=== PATIENT | female | born 1980 | race Caucasian/White ===

== ENCOUNTER 2017-10-16 12:46 | Emergency (ER) | payer OTHER ==
[~2017-10-16] VITALS: Ht 162.6 cm; Wt 82.2 kg
[~2017-10-16 12:46] MED LIST: LVXUNK; NOVOLOG INSULIN PUMP; OGESTREL
[2017-10-16 12:57] VITALS: TEMP 36.6; Ht 162.6 cm; Wt 82.2 kg
[2017-10-16] MEDS ORDERED: SODIUM CHLORIDE 0.9% 1000ML 1,000 ML IV SCH (13:16)
--- NOTE | 2017-10-16 13:31 | DIAGNOSTIC IMAGING REPORT ---
CT HEAD WITHOUT CONTRAST (CT) CLINICAL HISTORY: Stroke FACIAL NUMBNESS COMPARISON STUDY: No previous studies for comparison. TECHNIQUE: Axial CT of the brain is performed from the vertex to the skull base. IV contrast was not administered for this examination. A dose lowering technique was utilized adhering to the principles of ALARA. CT DOSE: 601.98 mGy.cm FINDINGS: No intra or extra-axial mass lesions are visualized. There is no CT evidence of acute cortical infarction. There is no evidence of midline shift. There is no acute hemorrhage. No calvarial fractures are visualized. There is no evidence of pathologic ventricular dilatation. There is no evidence of acute sinusitis IMPRESSION: No acute intracranial findings Electronically signed by: Clement Mccullough M.D. 10/16/2017 1:29 PM Dictated Date/Time: 10/16/2017 1:28 PM
[2017-10-16 13:37] VITALS: O2SAT 99
[2017-10-16 14:39] LABS: BASO % 0.2 %; BASO ABS # 0.02 K/uL (0-0.2); EOS % 0.2 %; EOS ABS # 0.02 K/uL (0-0.5); HEMATOCRIT 47.7 % (37-47); IG# 0.03 K/uL (0.00-0.02); LYMPH % 24.3 %; LYMPH ABS # 2.45 K/uL (1.2-3.4); MEAN CELL VOLUME 89.2 fL (80-100); MEAN CORPUSCULAR HEMOGLOBIN 31.8 pg (25-34); MEAN CORPUSCULAR HGB CONC 35.6 g/dl (32-36); MEAN PLATELET VOLUME 9.8 fL (7.4-10.4); MONO % 6.9 %; NEUT % 68.1 %; NEUT ABS # 6.88 K/uL (1.4-6.5); PLATELET COUNT 288 K/uL (130-400); RED CELL DISTRIBUTION WIDTH CV 12.9 % (11.5-14.5); RED CELL DISTRIBUTION WIDTH SD 41.9 fL (36.4-46.3)
[2017-10-16 14:49] LABS: PTT PATIENT 25.9 SECONDS (21.0-31.0)
[2017-10-16] MEDS ORDERED: INSPMPHMLG (14:53)
[2017-10-16] MEDS ORDERED: PROMETHAZINE HCL INJ 12.5 MG in SODIUM CHLORIDE 0.9% 50ML 50 ML IV STA (14:54)
[2017-10-16] MEDS ORDERED: SODIUM CHLORIDE 0.9% 1000ML 500 ML IV STA (14:54)
[2017-10-16] MEDS ORDERED: KETOROLAC TROMETHAMINE 30 MG/ML VIAL IV STA (14:54)
[2017-10-16] MEDS ORDERED: ASPI81TA28 PO (14:56)
[2017-10-16] MEDS ORDERED: ALPR0.25 PO (14:56)
[2017-10-16 14:57] LABS: BLOOD UREA NITROGEN 10 mg/dl (7-18); CALCIUM 9.3 mg/dl (8.5-10.1); CARBON DIOXIDE 28 mmol/L (21-32); CREATININE 0.87 mg/dl (0.60-1.20); GLUCOSE 260 mg/dl (70-99); POTASSIUM 3.8 mmol/L (3.5-5.1); SODIUM 136 mmol/L (136-145)
[2017-10-16 15:02] LABS: CKMB 1.9 ng/ml (0.5-3.6)
[2017-10-16] MEDS ORDERED: MoRPHine SULFATE 4 MG/ML 1 ML CARP\\VIAL IV STA (15:48)
--- NOTE | 2017-10-16 16:21 | EMERGENCY ROOM VISIT NOTE ---
History Report prepared by Genet: Iram Marie Under the Supervision of: Dr. Catracho Shin M.D. First contact with patient: 13:04 Chief Complaint: NEURO SYMPTOMS Stated Complaint: POSSIBLE STROKE History of Present Illness The patient is a 37 year old female who presents to the Emergency Room with complaints of worsening stroke like symptoms that began suddenly 2 hours ago. The patient reports numbness on the left side of her face, and numbness and weakness in her left arm. She states she has a headache. She denies abdominal pain, vomiting, fevers, and head strike. 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 She has a history of Type 1 diabetes and Pots syndrome. She denies any chest pain or shortness of breath or fever or chills. She is not on any blood thinners Source of History: patient, family Onset: 2 hours ago Position: head, leg (left) Timing: worsening Associated Symptoms: + headache, + weakness (left arm), + numbness (left side of face and left arm), No fevers, No vomiting, No abdominal pain Note: Patient denies head strike. Review of Systems See HPI for pertinent positives & negatives. A total of 10 systems reviewed and were otherwise negative. Past Medical & Surgical Medical Problems: (1) POTS (postural orthostatic tachycardia syndrome) (2) Type 1 diabetes Surgical Problems: (1) H/O: hysterectomy Old medical records were attempted to be reviewed but there are no old records at this hospital. Nurse's notes were reviewed and I agree with. Social History Smoking Status: Current Every Day Smoker Alcohol Use: occasionally Marital Status: in relationship Housing Status: lives with family Occupation Status: employed Current/Historical Medications Scheduled Aspirin (Aspirin Ec), 81 MG PO DAILY Insulin Human Lispro (Insulin Humalog Pump ), 1 EA N/A UD Scheduled PRN Alprazolam (Xanax), 0.25 MG PO UD PRN for poltz syndrome Allergies Coded Allergies: Codeine (Verified Adverse Reaction, Intermediate, HEART RACES, 06/25/10) Physical Exam Vital Signs Date Time Temp Pulse Resp B/P (MAP) Pulse Ox O2 Delivery O2 Flow Rate FiO2 10/16/17 16:35 87 20 146/87 96 10/16/17 16:03 84 20 108/68 96 Room Air 10/16/17 14:31 90 18 120/78 98 Room Air 10/16/17 14:03 93 10/16/17 13:37 99 Room Air 10/16/17 12:57 36.6 90 18 118/78 97 Room Air Physical Exam General: Non-ill appearing young female in no acute distress. Speaking and swallowing without difficulty. HEENT: Normal cephalic atraumatic. Pupils are equal round and reactive to light. Extraocular movements are intact. Oropharynx is pink with moist mucous membranes. No swelling of the mouth lips or tongue. Neck: Supple with a midline trachea. No meningeal signs or stiffness, no JVD or bruits. No Stridor. Chest: Clear to auscultation bilaterally. No wheezes or rhonchi. No increased work of breathing. Heart: regular rate and rhythm. Abdomen: Soft nontender, nondistended without rebound guarding or rigidity. Extremities: No cyanosis clubbing or edema. No calf tenderness or assymetry Spine/Back. Non tender to palpation. No CVA tenderness Skin: Good turgor without rashes. Neurologic exam: Cranial nerves two through 12 are intact. Subjective decreased sensation in left cheek and arm. She can feel light touch. Medical Decision & Procedures ER Provider Diagnostic Interpretation: Radiology results as stated below per my review and radiologist interpretation: CT HEAD WITHOUT CONTRAST (CT) CLINICAL HISTORY: Stroke FACIAL NUMBNESS COMPARISON STUDY: No previous studies for comparison. TECHNIQUE: Axial CT of the brain is performed from the vertex to the skull base. IV contrast was not administered for this examination. A dose lowering technique was utilized adhering to the principles of ALARA. CT DOSE: 601.98 mGy.cm FINDINGS: No intra or extra-axial mass lesions are visualized. There is no CT evidence of acute cortical infarction. There is no evidence of midline shift. There is no acute hemorrhage. No calvarial fractures are visualized. There is no evidence of pathologic ventricular dilatation. There is no evidence of acute sinusitis IMPRESSION: No acute intracranial findings Electronically signed by: Clement Mccullough M.D. 10/16/2017 1:29 PM Dictated Date/Time: 10/16/2017 1:28 PM Laboratory Results 10/16/17 14:21 Red Blood Count 5.35, Mean Corpuscular Volume 89.2, Mean Corpuscular Hemoglobin 31.8, Mean Corpuscular Hemoglobin Concent 35.6, Mean Platelet Volume 9.8, Neutrophils (%) (Auto) 68.1, Lymphocytes (%) (Auto) 24.3, Monocytes (%) (Auto) 6.9, Eosinophils (%) (Auto) 0.2, Basophils (%) (Auto) 0.2, Neutrophils # (Auto) 6.88, Lymphocytes # (Auto) 2.45, Monocytes # (Auto) 0.70, Eosinophils # (Auto) 0.02, Basophils # (Auto) 0.02 10/16/17 14:21 Test 10/16/17 13:20 10/16/17 14:21 Bedside Prothrombin Time INR 1.0 (0.9-1.1) White Blood Count 10.10 K/uL (4.8-10.8) Red Blood Count 5.35 M/uL (4.2-5.4) Hemoglobin 17.0 g/dL (12.0-16.0) Hematocrit 47.7 % (37-47) Mean Corpuscular Volume 89.2 fL (80-100) Mean Corpuscular Hemoglobin 31.8 pg (25-34) Mean Corpuscular Hemoglobin Concent 35.6 g/dl (32-36) Platelet Count 288 K/uL (130-400) Mean Platelet Volume 9.8 fL (7.4-10.4) Neutrophils (%) (Auto) 68.1 % Lymphocytes (%) (Auto) 24.3 % Monocytes (%) (Auto) 6.9 % Eosinophils (%) (Auto) 0.2 % Basophils (%) (Auto) 0.2 % Neutrophils # (Auto) 6.88 K/uL (1.4-6.5) Lymphocytes # (Auto) 2.45 K/uL (1.2-3.4) Monocytes # (Auto) 0.70 K/uL (0.11-0.59) Eosinophils # (Auto) 0.02 K/uL (0-0.5) Basophils # (Auto) 0.02 K/uL (0-0.2) RDW Standard Deviation 41.9 fL (36.4-46.3) RDW Coefficient of Variation 12.9 % (11.5-14.5) Immature Granulocyte % (Auto) 0.3 % Immature Granulocyte # (Auto) 0.03 K/uL (0.00-0.02) Prothrombin Time 10.0 SECONDS (9.0-12.0) Prothromb Time International Ratio 1.0 (0.9-1.1) Activated Partial Thromboplast Time 25.9 SECONDS (21.0-31.0) Partial Thromboplastin Ratio 1.0 Anion Gap 6.0 mmol/L (3-11) Est Creatinine Clear Calc Drug Dose 91.0 ml/min Estimated GFR () 97.9 Estimated GFR (Non- 84.5 BUN/Creatinine Ratio 11.2 (10-20) Calcium Level 9.3 mg/dl (8.5-10.1) Magnesium Level 1.9 mg/dl (1.8-2.4) Total Creatine Kinase 164 U/L (26-192) Creatine Kinase MB 1.9 ng/ml (0.5-3.6) Creatine Kinase MB Ratio 1.2 (0-3.0) Troponin I < 0.015 ng/ml (0-0.045) Laboratory studies as stated above per my review. Medications Administered Medications (Trade) Dose Ordered Sig/Willy Route Start Time Stop Time Status Last Admin Dose Admin Sodium Chloride 1,000 ml @ 50 mls/hr Q20H IV 10/16/17 13:16 11/15/17 13:15 10/16/17 13:16 50 MLS/HR Sodium Chloride 500 ml @ 999 mls/hr Q31M STAT IV 10/16/17 14:54 10/16/17 15:24 DC 10/16/17 14:54 999 MLS/HR Ketorolac Tromethamine (Toradol Inj) 30 mg NOW STAT IV 10/16/17 14:54 10/16/17 14:56 DC 10/16/17 15:16 30 MG Promethazine HCl 12.5 mg/Sodium Chloride 50.5 ml @ 204 mls/hr NOW STAT IV 10/16/17 14:54 10/16/17 15:08 DC 10/16/17 15:26 204 MLS/HR Morphine Sulfate (MoRPHine SULFATE INJ) 4 mg NOW STAT IV 10/16/17 15:48 10/16/17 15:53 DC 10/16/17 16:00 4 MG Aspirin (Aspirin Chew) 324 mg NOW STAT PO 10/16/17 16:28 10/16/17 16:29 DC 10/16/17 16:39 324 MG ECG Per My Interpretation Indication: other (stroke like symptoms) Rate (beats per minute): 86 Rhythm: normal sinus Findings: no acute ischemic change, no ectopy Comparison ECG Date: no prior available ED Course 1304: Past medical records reviewed. The patient was evaluated in room B3B, and a complete history and physical examination were performed. 1316: Sodium Chloride 1000 ml @ 50 mls/hr IV. 1332. I checked on the patient and she is doing well. 1406: I spoke with Dr. Mckinnon. Discussed the patient's case. The patient will be evaluated for further management. 1450: I spoke with Dr. Mckinnon and he doesn't believe that the patient has had a stroke. 1454: Promethazine HCl 12.5 mg/Sodium Chloride, 50.5 ml @ 204 mls/hr; Toradol Inj, 30 mg, IV; Sodium Chloride 500 ml @ 999 mls/hr IV. 1456: I spoke with the patient and suggested we admit her. She declined. I told her that I will recheck her and see if her numbness subsides. 1546: I checked on the patient. She states she is feeling better. She reports that she still feels numbness in her face and has a headache. She will have a car driver pick her up. 1548: Morphine Sulfate Inj, 4 mg, IV. 1621: I checked on the patient and she is doing well. The headache and tingling have improved. I offered admission and she declined. I will increase her Aspirin. 1628: Aspirin Chew, 324 mg, PO. 1630: Upon reevaluation, the patient is doing well. I discussed the results and treatment plan with her. She verbalized agreement of the treatment plan. The patient was discharged home. Medical Decision Differential diagnoses includes CVA, TIA, migraine, hypoglycemia, electrolyte and metabolic abnormality. This patient comes in as described above. She was well until about 2 hours ago and had some tingling in her left face and arm. She looks well on exam. She has no neurologic deficits with the exception of subjective decrease in sensation of these areas however she has intact light touch. EKG does not suggest acute coronary syndrome or arrhythmia. Blood sugars only mildly elevated in the 200s and she has no evidence of DKA or acute diabetic emergency. She has no acute electrolyte or metabolic abnormalities. I did call a stroke alert, Dr. Hernandez did look to the patient and he does not feel that is likely a stroke. She has had this before and it may be more of a complicated migraine. She does have a headache. She was hydrated with normal saline IV as well as given IV Phenergan and IV Toradol and this actually helped her headache as well as her tingling. she required additional morphine 4 mg IV and was doing much better with this. The headache was significantly resolved and the tingling had gotten a lot better as well. I talked to the patient at length and recommended that we observe her in the hospital and do an MRI and further neurologic workup. I told her that this could be a new stroke or TIA or another central neurologic process and recommended that we keep her in the hospital for further evaluation, particularly given the fact that she is diabetic and has other cardiovascular risk factors. I discussed this with her several times which she adamantly declines and wants to get home. she has a friend here who will be driving. I encouraged to have close follow-up with her regular doctor and return to the ER if: increasing pain or worsening of numbness or weakness, any new problems, or concerns. She was given aspirin 324 mg here and will increase her aspirin to 325 mg from 81 and have close follow- up with her doctor tomorrow. She was happy with the plan and discharged home and again declined admission. Medication Reconcilliation Current Medication List: was personally reviewed by me Blood Pressure Screening Patient's blood pressure: Normal blood pressure Blood pressure disposition: Did not require urgent referral Consults Time Called: 1404 Consulting Physician: Dr. Mckinnon Returned Call: [phone] Discussed the patient's case. The patient will be evaluated for further management. Additional Consults: Time Called: 1448 Consulted Physician: Dr. Mckinnon Returned Call: [phone] Additional Comments: Discussed the patient's case. The patient will be evaluated for further management. Impression Primary Impression: Headache Additional Impression: Left sided numbness Scribe Attestation The scribe's documentation has been prepared under my direction and personally reviewed by me in its entirety. I confirm that the note above accurately reflects all work, treatment, procedures, and medical decision making performed by me. Departure Information Dispostion Discharge/Transfer to [facility] Referrals No Doctor, Assigned (PCP) Forms HOME CARE DOCUMENTATION FORM, IMPORTANT VISIT INFORMATION, WORK / SCHOOL INSTRUCTIONS Patient Instructions My [employer] Additional Instructions Rest Increase your Aspirin to 325 mg a day from 81 mg. Return if: Recurrence of symptoms, worsening of symptoms, fever or chills, any new problems or concerns Check your blood sugar frequently Follow-up with your doctor tomorrow for recheck Problem Qualifiers
[2017-10-16] MEDS ORDERED: ASPIRIN 81 MG CHEW PO STA (16:28)
[2017-10-16 16:35] VITALS: BP 146/87; PULSE 87; O2SAT 96
== END 2017-10-16 16:44 | disposition left against medical advice (07) ==
LOC: C.EDB 12:48
DX: R51 Headache (principal); R20.0 Anesthesia of skin; E10.9 Type 1 diabetes mellitus without complications; I49.8 Other specified cardiac arrhythmias; F17.200 Nicotine dependence, unspecified, uncomplicated; Z86.73 Personal history of transient ischemic attack (TIA), and cerebral infarction without residual deficits; Z90.710 Acquired absence of both cervix and uterus; Z79.82 Long term (current) use of aspirin; Z79.4 Long term (current) use of insulin; Z88.5 Allergy status to narcotic agent